=== PATIENT | male | born 1980 | race Hispanic/Latino ===

== ENCOUNTER 2017-06-02 09:30 | Emergency (ER) | payer SELFPAY ==
[~2017-06-02] VITALS: Ht 180.3 cm; Wt 120.2 kg
[2017-06-02] MEDS ORDERED: EYE IRRIGATION (OPTH) 120 ML BTL OP ONE ×2 (10:00→10:30)
[2017-06-02] MEDS ORDERED: TETRACAINE HCL 0.5% OPTH SOLN 4 ML BTL OP ONE ×2 (10:00→10:30)
[2017-06-02] MEDS ORDERED: FLUORESCEIN SOD(OPTH) 1 MG STRP OP ONE (10:30)
[2017-06-02] MEDS ORDERED: ERYTHROMYCIN (OPTH) 3.5 GM OINT OP ONE (10:42)
[2017-06-02 11:29] VITALS: BP 141/97
== END 2017-06-02 11:35 | disposition home or self-care (01) ==
LOC: ER 09:30
DX: T15.01XA Foreign body in cornea, right eye, initial encounter (principal); X58.XXXA Exposure to other specified factors, initial encounter
CPT/HCPCS: 99284